=== PATIENT | female | born 1955 ===

== ENCOUNTER → 2017-04-15 | Day surgery (SDC) | payer OTHER ==
[~2017-04-15] VITALS: Ht 157.5 cm; Wt 103.2 kg
[~2017-04-15] MED LIST: 0.9% Sodium Chloride 1,000 ML IV PRN; CHOL200047 PO; Sodium Chloride LOK Flush 10 mL Syringe IV PRN; fentaNYL-PF 50 mCg/mL 2 mL Inj IVPUSH PRN
[2017-04-15 13:43] VITALS: BP 127/58; PULSE 74; O2SAT 96
[2017-04-15 15:48] VITALS: BP 136/78; PULSE 73; RESP 14; O2SAT 93
[2017-04-15 15:57] VITALS: BP 113/72; PULSE 80; RESP 16; O2SAT 95
[2017-04-15 16:06] VITALS: BP 130/78; PULSE 75; RESP 16; O2SAT 95
--- NOTE | 2017-04-15 16:59 | ENDO ---
[address] [address] ENDOSCOPY PROCEDURE PATIENT: SHIVAM CARVAJAL : 1955 MR#: [id number] ADMIT: 04/15/2017 JOB ID: [id number] PRIMARY PROVIDER: LORENE Holden PROCEDURE: Colonoscopy with cold forceps polypectomy. INDICATION: A 61-year-old female with a personal history of colon polyps. EQUIPMENT: PCF H 180 AL SEDATION: Versed 6 mg and 125 mcg fentanyl. COMPLICATIONS: None identified. BOWEL PREPARATION: Fair, adequate exam. PROCEDURE INFORMATION: After the risks and benefits were explained, written and verbal informed consent was obtained. The patient was brought into the endoscopy suite and placed into the left lateral decubitus position. Sedation was achieved as above. A digital rectal examination accomplished. No significant pathology appreciated. The scope was introduced into the rectum and advanced to the cecum as identified by the appendiceal orifice and ileocecal valve. The scope was slowly withdrawn to carefully examine the mucosa for any defects or lesions. Retroflexed views were avoided in the rectum. Multiple direct views were made through the dentate line for exclusion of pathology. The colon was decompressed and the scope removed from the patient, who tolerated the procedure well. FINDINGS: Some mild diverticulosis in the left colon. In the ascending there was a diminutive 3-4 mm polyp removed with cold forceps. No other significant pathology was appreciated throughout. ENDOSCOPIC DIAGNOSES: 1. Colon polyp. 2. Diverticulosis. 3. Hemorrhoids. RECOMMENDATIONS: 1. Await histopathology. 2. Repeat colonoscopy in five years. CC: LORENE Holden
--- NOTE | 2017-04-18 11:50 | PATH ---
SURGICAL PATHOLOGY Attending Physician:Davey Beck CASE STATUS: Signed Out PATIENT NAME: SHIVAM CARVAJAL PID: [id number] : 1955 DATE COLLECTED:04/15/2017 00:00 SPECIMEN: Colon, Polyp CLINICAL HISTORY: 1). ASCENDING COLON POLYP FINAL DIAGNOSIS: Ascending Colon, Polyp, Biopsy: Tubular adenoma. ICD10: D12.2 GROSS DESCRIPTION: The specimen is received in one formalin filled container labeled with the patient's name, sublabeled "ascending colon polyp" and consists of a 0.2 x 0.2 x 0.2 CM portion of tissue which is entirely submitted in one cassette. 04/16/2017[place] ICD-9 CODES: CPT CODES: 1: 81392 Electronically Signed Out Bria Zhao MD [facility] Pathology [facility], [place] [address] Technical component performed at [facility], [address] [place] [address] [address], [place], [address]
== END | disposition home or self-care (01) ==
LOC: END 00:16
PROVIDERS: ATTEND Internal Medicine Gastroenterology
DX: Z12.11 Encounter for screening for malignant neoplasm of colon (principal); D12.2 Benign neoplasm of ascending colon; Z86.010 Personal history of colon polyps; Z80.0 Family history of malignant neoplasm of digestive organs; K57.30 Diverticulosis of large intestine without perforation or abscess without bleeding; K64.9 Unspecified hemorrhoids
CPT/HCPCS: 45380; 99153; G0500; J2250; J3010; J7030